=== PATIENT | male | born 1980 | race Caucasian/White ===

== ENCOUNTER 2019-08-21 08:08 | Day surgery (SDC) | payer SELFPAY ==
[2019-08-21] VITALS (21 sets, daily range): BP systolic 120–159; BP diastolic 71–100; PULSE 56–99; RESP 16–27; TEMP 36.2–36.7; O2SAT 96–100; BMI 25.2
--- NOTE | 2019-08-21 08:55 | CTR_ITS ---
PROCEDURE INFORMATION: Exam: CT Abdomen And Pelvis With Contrast Exam date and time: 08/21/2019 9:03 AM Age: 38 years old Clinical indication: Abdominal pain; Localized; Right upper quadrant (ruq); Additional info: Abd pain TECHNIQUE: Imaging protocol: Computed tomography of the abdomen and pelvis with intravenous contrast. Radiation optimization: All CT scans at this facility use at least one of these dose optimization techniques: automated exposure control; mA and/or kV adjustment per patient size (includes targeted exams where dose is matched to clinical indication); or iterative reconstruction. Contrast material: OMNI 300; Contrast volume: 95 ml; Contrast route: LT AC; COMPARISON: US gall bladder [id number] 08/21/2019 9:14 AM RADIATION DOSE METRICS: Total DLP: 718.72 mGy-cm FINDINGS: Pleural space: No significant airspace or pleural disease. Liver: No focal hepatic mass. Gallbladder and bile ducts: Cholelithiasis and gallbladder wall thickening. No biliary ductal dilatation. Pancreas: No pancreatic mass or ductal dilatation. Spleen: No splenomegaly. Adrenals: Unremarkable adrenals. Kidneys and ureters: Normal renal morphology. No hydronephrosis. Stomach and bowel: No significant small bowel dilatation. Prominent stool. Diverticula, without pericolonic inflammation. Appendix: No acute appendicitis. Intraperitoneal space: No free fluid. Vasculature: Normal caliber of the abdominal aorta. Vascular calcification. Lymph nodes: Subcentimeter lymph nodes. Bladder: Normal bladder morphology. Reproductive: Unremarkable as visualized. Bones/joints: Punctate pelvic bone islands. Schmorl's nodes and marginal osteophytes. Soft tissues: Small fat containing umbilical hernia. CT/CT abdomen pelvis w con* [id number] IMPRESSION: 1. Cholelithiasis and gallbladder wall thickening. 2. Additional findings as described above. Radiation Dose CTDIVOL = (mGy): DLP = 718.72 (mGy-cm)
--- NOTE | 2019-08-21 08:55 | USR_ITS ---
PROCEDURE INFORMATION: Exam: US Abdomen Limited, Right Upper Quadrant Exam date and time: 08/21/2019 9:30 AM Age: 38 years old Clinical indication: Abdominal pain; Other: Ruq; Additional info: Ruq abd pain TECHNIQUE: Imaging protocol: Real-time ultrasound of the abdomen with image documentation. Examination was focused on the right upper quadrant. COMPARISON: No relevant prior studies available. FINDINGS: Liver: No focal hepatic mass. Gallbladder: Echogenic bile, gallbladder wall thickening, and cholelithiasis, with a 1.9 cm calculus in the gallbladder neck. Technologist reported positive sonographic Patiño sign. Common bile duct: Normal caliber of the incompletely visualized common bile duct measuring 2 mm in diameter. Pancreas: No acute sonographic abnormality in the visualized pancreas. Right kidney: Normal right renal morphology. No hydronephrosis. Aorta: Normal caliber of the abdominal aorta. Inferior vena cava: Unremarkable IVC. US/US gall bladder [id number] IMPRESSION: Abnormal gallbladder with echogenic bile, gallbladder wall thickening, 1.9 cm calculus in the gallbladder neck, and technologist reported positive sonographic Patiño sign; consistent with cholecystitis in the appropriate clinical setting.
--- NOTE | 2019-08-21 09:01 | ED_ITS ---
HPI - Abdominal Pain General: Chief Complaint: Abdominal Pain Stated Complaint: abd pain Time Seen by Provider: 08/21/19 08:55 History of Present Illness: HPI narrative: Severe right upper quadrant abdominal pain. Started late last night. There does not appear to be any relationship to food. Patient states he had an episode like this similarly in the past that lasted approximately 3 days. MD elicited complaint: abdominal pain Pertinent past history: none Onset (ago): hour(s) Pain Consistency: constant Location: RUQ Severity: severe Quality: aching, dull and burning Radiation: none Migration to: no migration Exacerbating factors: eating Relieving factors: nothing Associated Symptoms: Reports diarrhea, nausea and vomiting Review of Systems General: Reports: 10 or more systems reviewed and unremarkable except in HPI and below GI: Reports: abdominal pain, nausea, vomiting and diarrhea PFSH ED PFSH: Social History Smoking and tobacco status: current every day smoker Physical Exam HENMT: COMMON NORMALS: normocephalic HEAD & SCALP: normocephalic Neck/C-Spine: COMMON NORMALS: full ROM and no meningeal signs Resp: COMMON NORMALS: normal respiratory effort, No use of accessory muscles and clear to auscultation bilaterally AUSCULTATION: clear to auscultation bilaterally Cardio: COMMON NORMALS: regular rate and regular rhythm RATE: regular rate RHYTHM: regular rhythm GI: COMMON NORMALS: Soft to palpation AUSCULTATION: Yes Hypoactive bowel sounds present PALPATION: Yes Soft to palpation, Yes Tenderness to palpation present (GI) Details: RUQ and Yes Guarding due to palpation present (GI) in the RUQ Extremity: COMMON NORMALS: normal to inspection Neuro: MENINGEAL SIGNS: Yes no meningeal signs Skin: COMMON NORMALS: no rashes or lesions noted, turgor normal, no jaundice and no mottling GENERAL SKIN EXAM: no rashes or lesions noted and turgor normal Course Vital Signs: Vital signs: Vital Signs Temperature 97.6 F 08/21/19 08:13 Pulse Rate 64 08/21/19 10:35 Respiratory Rate 16 08/21/19 10:35 Blood Pressure 147/87 08/21/19 10:35 Pulse Oximetry 97 08/21/19 10:35 MDM - Abdominal Pain Lab Data: Labs: Lab Results 08/21/19 08/21/19 08/21/19 Range/Units 08:25 08:25 08:25 WBC 15.2 H (4.0-10.0) 10^3/ uL RBC 4.96 (4.1-5.3) 10^6/u L Hgb 15.5 (11.7-16.6) g/dL Hct 46.7 (42.0-52.0) % MCV 94.2 H (80-94) fL MCH 31.3 (28.0-34.0) pg MCHC 33.2 (30.0-36.0) g/dL RDW 12.9 (12.1-15.1) % Plt Count 284 (130-400) 10^3/c mm MPV 9.9 (7.4-10.4) fL Neut % (Auto) 84.4 % Lymph % (Auto) 9.1 % [place] % (Auto) 5.5 % Eos % (Auto) 0.3 % Baso % (Auto) 0.3 % Neut # (Auto) 12.8 H (1.8-7.7) 10^3/u L Lymph # (Auto) 1.4 (0.8-4.8) 10^3/u L [place] # (Auto) 0.8 (0.2-0.9) 10^3/u L Eos # (Auto) 0.0 (0.0-0.8) 10^3/u L Baso # (Auto) 0.0 (0.0-0.1) 10^3/u L Nucleated RBC % (a uto) 0 % Nucleated RBCs # 0.0 /100WBC Sodium 138 (136-145) mmol/L Potassium 4.6 (3.5-5.1) mmol/L Chloride 99 (98-107) mmol/L Carbon Dioxide 29 (22-29) mmol/L Anion Gap 14.6 (5-19) BUN 9 (6-20) mg/dL Creatinine 0.8 (0.7-1.2) mg/dL GFR Calculation 107.6 (90-130) mL/min Glucose 140 H (65-115) mg/dL Calculated Osmolal ity 284 L (285-295) mOsm/k g Lactate 1.5 (0.5-2.2) mmol/L Calcium 10.3 (8.5-10.5) mg/dL Total Bilirubin 0.3 (0.15-1.2) mg/dL AST 26 (0-40) U/L ALT 40 (0-41) U/L Alkaline Phosphata se 85 (40-130) IU/L Total Protein 8.1 (6.6-8.7) g/dL Albumin 4.6 (3.5-5.2) g/dL Globulin 3.5 (1.3-4.6) g/dL Lipase 19 (13-60) U/L Urine Color (Yellow) Urine Appearance (CLEAR) Urine pH (5-7) Ur Specific Gravit y (1.005-1.030) Urine Protein (Negative) Urine Glucose (UA) (Normal) Urine Ketones (Negative) Urine Blood (Negative) Urine Nitrate (Negative) Urine Bilirubin (NEGATIVE) Urine Urobilinogen (Negative) mg/dL Ur Leukocyte Cornelia ase (Negative) 08/21/19 Range/Units 10:32 WBC (4.0-10.0) 10^3/ uL RBC (4.1-5.3) 10^6/u L Hgb (11.7-16.6) g/dL Hct (42.0-52.0) % MCV (80-94) fL MCH (28.0-34.0) pg MCHC (30.0-36.0) g/dL RDW (12.1-15.1) % Plt Count (130-400) 10^3/c mm MPV (7.4-10.4) fL Neut % (Auto) % Lymph % (Auto) % [place] % (Auto) % Eos % (Auto) % Baso % (Auto) % Neut # (Auto) (1.8-7.7) 10^3/u L Lymph # (Auto) (0.8-4.8) 10^3/u L [place] # (Auto) (0.2-0.9) 10^3/u L Eos # (Auto) (0.0-0.8) 10^3/u L Baso # (Auto) (0.0-0.1) 10^3/u L Nucleated RBC % (a uto) % Nucleated RBCs # /100WBC Sodium (136-145) mmol/L Potassium (3.5-5.1) mmol/L Chloride (98-107) mmol/L Carbon Dioxide (22-29) mmol/L Anion Gap (5-19) BUN (6-20) mg/dL Creatinine (0.7-1.2) mg/dL GFR Calculation (90-130) mL/min Glucose (65-115) mg/dL Calculated Osmolal ity (285-295) mOsm/k g Lactate (0.5-2.2) mmol/L Calcium (8.5-10.5) mg/dL Total Bilirubin (0.15-1.2) mg/dL AST (0-40) U/L ALT (0-41) U/L Alkaline Phosphata se (40-130) IU/L Total Protein (6.6-8.7) g/dL Albumin (3.5-5.2) g/dL Globulin (1.3-4.6) g/dL Lipase (13-60) U/L Urine Color Yellow (Yellow) Urine Appearance Clear (CLEAR) Urine pH 7 (5-7) Ur Specific Gravit y 1.005 (1.005-1.030) Urine Protein Neg (Negative) Urine Glucose (UA) Norm (Normal) Urine Ketones Negative (Negative) Urine Blood Neg (Negative) Urine Nitrate Negative (Negative) Urine Bilirubin Neg (NEGATIVE) Urine Urobilinogen Norm (Negative) mg/dL Ur Leukocyte Cornelia ase Negative (Negative) Discharge Plan Discharge Patient Disposition: Admitted As Inpatient Clinical Impression: Cholecystitis Cholelithiasis Qualifiers: Cholelithiasis location: gallbladder Cholecystitis presence: with cholecystitis Cholecystitis acuity: acute Biliary obstruction: without biliary obstruction Qualified Code(s): K80.00 - Calculus of gallbladder with acute cholecystitis without obstruction Condition: Fair Coding Level of Care Code ED [employer] Temperer for [facility] Fwd Exam Detailed
[2019-08-21 09:03] LABS: Basophils % 0.3 %; Eosinophils % 0.3 %; Hematocrit 46.7 % (42.0-52.0); Hemoglobin 15.5 g/dL (11.7-16.6); Lymphocytes # 1.4 10^3/uL (0.8-4.8); Lymphocytes % 9.1 %; Mean Corpuscular HGB Conc 33.2 g/dL (30.0-36.0); Mean Corpuscular Hemoglobin 31.3 pg (28.0-34.0); Mean Corpuscular Volume 94.2 fL (80-94); Mean Platelet Volume 9.9 fL (7.4-10.4); Monocytes # 0.8 10^3/uL (0.2-0.9); Monocytes % 5.5 %; Neutrophils # 12.8 10^3/uL (1.8-7.7); Neutrophils % 84.4 %; Nucleated Red Blood Cells % 0 %; Platelet Count 284 10^3/cmm (130-400); Red Blood Count 4.96 10^6/uL (4.1-5.3); Red Cell Distribution Width 12.9 % (12.1-15.1); White Blood Count 15.2 10^3/uL (4.0-10.0)
[2019-08-21] MEDS: ondansetron 2 mg/ML SDV 2 mL 4 MG IVP ×2 (09:04→14:31)
[2019-08-21] MEDS: sodium chloride 0.9% 1,000 ML 999 ML IV (09:04)
[2019-08-21 09:17] LABS: Lactate (Lactic Acid level) 1.5 mmol/L (0.5-2.2)
[2019-08-21 09:18] LABS: Alanine Aminotransferase 40 U/L (0-41); Albumin Level 4.6 g/dL (3.5-5.2); Alkaline Phosphatase 85 IU/L (40-130); Anion Gap 14.6 (5-19); Aspartate Amino Transferase 26 U/L (0-40); Blood Urea Nitrogen 9 mg/dL (6-20); Calcium 10.3 mg/dL (8.5-10.5); Carbon Dioxide 29 mmol/L (22-29); Chloride 99 mmol/L (98-107); Globulin 3.5 g/dL (1.3-4.6); Glomerular Filtration Rate 107.6 mL/min (90-130); Glucose 140 mg/dL (65-115); Lipase 19 U/L (13-60); Osmolality Calculated 284 mOsm/kg (285-295); Potassium 4.6 mmol/L (3.5-5.1); Sodium 138 mmol/L (136-145); Total Bilirubin 0.3 mg/dL (0.15-1.2); Total Protein 8.1 g/dL (6.6-8.7)
[2019-08-21] MEDS: ketorolac 30 mg/mL INJ IVP (09:35)
[2019-08-21] MEDS: iohexol 300 mg/mL 100 mL Btl IV (09:59)
[2019-08-21 10:39] LABS: Add Urine Microscopic? NO
[2019-08-21 10:42] LABS: Bilirubin Urine Neg (NEGATIVE); Blood Urine Neg (Negative); Glucose Urine UA Norm (Normal); Ketones Urine Negative (Negative); Leukocyte Esterase Urine Negative (Negative); Nitrate Urine Negative (Negative); Protein Urine Neg (Negative); Specific Gravity, Urine 1.005 (1.005-1.030); Urine Appearance Clear (CLEAR); Urine Color Yellow (Yellow); Urobilinogen Urine Norm (Negative); pH Urine 7 (5-7)
[2019-08-21] MEDS: piperacillin-tazobactam 4.5 GM in sodium chloride 0.9% (plus) 50 ML IV (11:53)
--- NOTE | 2019-08-21 12:01 | P.ANESASSM_ITS ---
Pre-Anesthetic Assessment Pre-Anesthetic Assessment: Height/Weight: Height 1.78 m Weight 79.832 kg Temp Pulse Resp BP Pulse Ox 97.6 F 59 L 18 126/96 96 08/21/19 08:13 08/21/19 11:57 08/21/19 11:57 08/21/19 11:57 08/21/19 11:57 Proposed Procedure: Operation Date: 08/21/19 12:30 Proposed Procedures p Laparoscopic Cholecystectomy(Not Applicable) - Carlos Hanna MD Last intake: Intake Last Liquid Date 08/21/19 Last Liquid Time 04:00 Last Solid Date 08/20/19 Last Solid Time 21:30 Social: Social History: Alcohol (occ) and Tobacco Exam: Pre-Anes Outpt Exam: alert, oriented x 3, clear to auscultation bilaterally and regular rate & rhythm Airway: Submandibular: Other (small) Cervical ROM: WNL MP: 2 Dentition: Other (very poor dentation) History/ROS: No significant complaints Anesthetic Plan: ASA status: 2 Anesthesia: Anesthesia Evaluation and General Risk of > 500 ml blood loss (7ml/kg in children): No Meds/Allergies Current Medications: Current Medications Generic Name Dose Route Start Last Admin Trade Name Freq PRN Reason Stop Dose Admin Piperacillin Sod/T azobactam 50 mls @ 100 mls/ hr 08/21/19 11:45 08/21/19 11:53 Sod 4.5 gm/ Sodi um Chloride IV 08/21/19 12:14 100 mls/hr ONCE ONE Administration Protocol PFSH Anesthesia PFSH: Social History Smoking and tobacco status: current every day smoker Data Anesthesia CBC & Chem 7: 08/21/19 08:25 08/21/19 08:25 Other Labs: Laboratory Results - last 48 hr 08/21/19 08/21/19 08/21/19 08:25 08:25 08:25 WBC 15.2 H RBC 4.96 Hgb 15.5 Hct 46.7 MCV 94.2 H MCH 31.3 MCHC 33.2 RDW 12.9 Plt Count 284 MPV 9.9 Neut % (Auto) 84.4 Lymph % (Auto) 9.1 [place] % (Auto) 5.5 Eos % (Auto) 0.3 Baso % (Auto) 0.3 Neut # (Auto) 12.8 H Lymph # (Auto) 1.4 [place] # (Auto) 0.8 Eos # (Auto) 0.0 Baso # (Auto) 0.0 Nucleated RBC % (auto) 0 Nucleated RBCs # 0.0 Sodium 138 Potassium 4.6 Chloride 99 Carbon Dioxide 29 Anion Gap 14.6 BUN 9 Creatinine 0.8 GFR Calculation 107.6 Glucose 140 H Calculated Osmolality 284 L Lactate 1.5 Calcium 10.3 Total Bilirubin 0.3 AST 26 ALT 40 Alkaline Phosphatase 85 Total Protein 8.1 Albumin 4.6 Globulin 3.5 Lipase 19 Urine Color Urine Appearance Urine pH Ur Specific [place] Urine Protein Urine Glucose (UA) Urine Ketones Urine Blood Urine Nitrate Urine Bilirubin Urine Urobilinogen Ur Leukocyte Esterase 08/21/19 10:32 WBC RBC Hgb Hct MCV MCH MCHC RDW Plt Count MPV Neut % (Auto) Lymph % (Auto) [place] % (Auto) Eos % (Auto) Baso % (Auto) Neut # (Auto) Lymph # (Auto) [place] # (Auto) Eos # (Auto) Baso # (Auto) Nucleated RBC % (auto) Nucleated RBCs # Sodium Potassium Chloride Carbon Dioxide Anion Gap BUN Creatinine GFR Calculation Glucose Calculated Osmolality Lactate Calcium Total Bilirubin AST ALT Alkaline Phosphatase Total Protein Albumin Globulin Lipase Urine Color Yellow Urine Appearance Clear Urine pH 7 Ur Specific [place] 1.005 Urine Protein Neg Urine Glucose (UA) Norm Urine Ketones Negative Urine Blood Neg Urine Nitrate Negative Urine Bilirubin Neg Urine Urobilinogen Norm Ur Leukocyte Esterase Negative Cardiac Studies: No Data to Display
--- NOTE | 2019-08-21 12:21 | PM.HP ---
Providers/Chief Complaint Chief Complaint: abd pain History of Present Illness Pollo Morgan is a 38 year old male who presented to the ER after he started developing severe right-sided abdominal pain associated nausea and vomiting. Patient states that he had a similar episode in May which resolved spontaneously. He denies any fevers chills constipation or diarrhea. Denies any significant acid reflux no history of peptic ulcer disease. No prior abdominal surgeries. Review of Systems General: Reports: 10 or more systems reviewed and unremarkable except in HPI and below Medications/Allergies Home Medications Medication Instructions Recorded Confirmed Last Taken Type No Known Home Medications 08/21/19 08/21/19 Unknown History Allergies Allergy/AdvReac Type Severity Reaction Status Date / Time No Known Allergies Allergy Verified 08/21/19 08:21 PFSH Acute PFSH: Social History Smoking and tobacco status: current every day smoker Vitals/I&O/Wt Last Vital Signs Temp 98.1 F 08/21/19 12:11 Pulse 68 08/21/19 12:11 Resp 18 08/21/19 12:11 BP 130/77 08/21/19 12:11 Pulse Ox 100 08/21/19 12:11 Weight last 48 hrs Weight 176 lb Physical Exam Narrative: EXAM NARRATIVE: HEENT: Normocephalic Eye: Sclera /conjunctiva normal Respiratory and chest: Bilateral clear breath sounds on auscultation Cardiovascular: Normal S1 and S2 heart sounds Abdomen: Soft to palpation, mildly tender right upper quadrant, small umbilical hernia Neurological: Oriented to place person and time Skin: Intact, no lesions appreciated on gross exam Data : 08/21/19 08:25 08/21/19 08:25 A&P Assessment and plan (1) Acute cholecystitis due to biliary calculus: 38-year-old gentleman with acute calculus cholecystitis. Plan for laparoscopic possible open cholecystectomy Procedure, risks, benefits and alternatives have been discussed with the patient who wishes to proceed with surgery. Status: Resolved Attestations Medical Necessity Statement*: Acute calculus cholecystitis requiring surgery Coding Level of Care Code Acute Radiation Control Health Physicist for [facility] Diagnoses Acute cholecystitis due to biliary calculus K80.00
[2019-08-21] MEDS: sodium chloride 0.9% 1,000 ML 30 ML IV (12:23)
--- NOTE | 2019-08-21 14:08 | SUR.PHASEI ---
1400 PATIENT TO PACU AT THIS TIME FROM OR. NO DISTRESS. PLACED ON SIMPLE MASK AT 8L, SPO2 100%. 4 INCISIONS TO ABDOMEN, CDI.
--- NOTE | 2019-08-21 14:11 | PM.OP ---
Operative Report Date of procedure: August 21, 2019 Pre-op Diagnosis: Acute cholecystitis Post-op Diagnosis: Acute on chronic cholecystitis Cholelithiasis Procedure Done: Laparoscopic cholecystectomy Pathology: Gallbladder Surgeon: Carlos Hanna Anesthesia: General Estimated blood loss (mL): 75 Condition: stable Disposition: PACU Procedure: The patient was taken to the operating room and was intubated under general anesthesia. After the antibiotic had been administered, the abdomen was prepped and draped in a sterile manner. Using a #15 blade, a 1 centimeter infraumbilical curvilinear incision was made and using an open Isidoro technique the peritoneal cavity was entered. A 10 millimeter port was placed and 15 millimeters of pneumoperitoneum was created. A 10 millimeter, 30 degrees scope was then introduced. Three 5 millimeter ports were placed in the epigastric, midclavicular and the anterior axillary line two fingerbreadths below the costal margin on the right side under the direct visualization. Ratcheted forceps were introduced into the lateral most port and was used to retract the fundus of the gallbladder cephalad and using forceps the infundibulum of the gallbladder was retracted laterally. There was a capsular tear medial to the gallbladder while retracting the gallbladder. Using L-hook cautery the peritoneum overlying the Calot's triangle was opened medially and laterally until the cystic duct and the cystic artery were skeletonized. There was bleeding from the cystic artery since it was densely adherent to the cystic duct and bled while it was dissected free from the cystic duct. The bleeding was finally controlled with cautery. Dissection was carried along the body of the gallbladder and after ensuring critical view of safety, 4 clips were applied on the cystic duct and 3 clips applied on the cystic artery and cut leaving, 3 clips on the remaining portion of the duct and 2 clips on the remaining portion of the artery. The rest of the gallbladder was dissected off the liver using L-hook cautery. The gallbladder was densely adherent to the gallbladder fossa which made dissection difficult and couple of openings were made in the body of the gallbladder. There was spillage of bile which was irrigated and suctioned out but there was no spillage of stones. There was no bleeding or bile leaking noted from the gallbladder fossa and the clips appeared to be in place. An EndoCatch bag was introduced to remove the gallbladder. All the ports were removed under direct visualization and there was no bleeding noted from the port sites. The fascia of the umbilicus was closed using [id number] 0 Vicryl sutures and the subcutaneous tissue was approximated using 3-0 Vicryl sutures. The skin at all four ports were closed using 4-0 Monocryl and Dermabond. A total of 10 millimeters of 0.5% Marcaine was infiltrated around the port sites. The patient was stable throughout the procedure.
--- NOTE | 2019-08-21 14:14 | ANE.PACU2 ---
Inpatient post-anesthesia follow up: Airway intact: Yes Vital signs: Temperature 97.6 F Pulse Rate [Monito r] 74 Pulse Rate 96 Respiratory Rate 17 Blood Pressure [Ri ght Arm] 159/98 Blood Pressure 124/83 Pulse Oximetry 97 Oxygen Delivery Me thod Room Air Oxygen Flow Rate 8 Fraction of Inspir ed Oxygen Hydration adequate: Yes Nausea and vomiting: No Pain level: Other Pain level: 0/10 Mental status: Baseline
[2019-08-21] MEDS: HYDROcodone-acetaminophen 5-325 mg Tablet 1 TAB PO (14:39)
--- NOTE | 2019-08-21 15:13 | SUR.PHASEII ---
1513 PATIENT DISCHARGED TO HOME. RR EVEN AND UNLABORED. DENIES NAUSEA. TOLERATING ICE CHIPS. PATIENT TAKEN TO VEHICLE VIA W/C. PRESCRIPTIONS GIVEN WITH DISCHARGE INSTRUCTIONS. PATIENT AND SIG OTHER VERBALIZED UNDERSTANDING OF TEACHING.
== END 2019-08-21 15:20 | disposition home or self-care (01) ==
LOC: ER 08:55 → OR 10:49
PROVIDERS: Family Medicine; Visit Provider Surgery
PROC: 0FT44ZZ Resection of Gallbladder, Percutaneous Endoscopic Approach (ICD-10-PCS; CPT 47562; principal; 2019-08-21 12:30)
DX: K80.10 Calculus of gallbladder with chronic cholecystitis without obstruction (principal); F17.210 Nicotine dependence, cigarettes, uncomplicated
CPT/HCPCS: 47562; 12345; 74177; 76705; 80053; 81003; 83605; 83690; 85025; 88304; 96375; 99282; J0330; J1100; J1885; J2001; J2250; J2405; J2543; J2704; J2710; J3010; J3490; J7030; Q9967